=== PATIENT | male | born 1960 | race Caucasian/White ===

== ENCOUNTER 2024-07-28 10:53 | Emergency (ER) | payer OTHER, SELFPAY ==
[2024-07-28 11:04] VITALS: BP 122/72; PULSE 102; RESP 18; TEMP 37.1; O2SAT 96
--- NOTE | 2024-07-28 11:51 | ED.URI ---
HPI - URI/Sore Throat General Chief Complaint: Upper Respiratory Infection Stated Complaint: sore throat/ congestion Source: patient and RN notes reviewed Mode of arrival: ambulatory Limitations: no limitations History of Present Illness HPI Narrative: 63-year-old male presented for complaint of headache, body aches, sinus pressure/congestion, cough, fever/chills. Onset yesterday. Denies sob, wheezing, n/v/d. Endorses exposure to covid. MD elicited complaint: cough Related Data Allergies Allergy/AdvReac Type Severity Reaction Status Date / Time No Known Allergies Allergy Verified 07/28/24 11:35 Review of Systems Review of Systems: CONSTITUTIONAL: Endorses malaise, chills, sweats, fever EYES: Denies visual changes, redness, or discharge ENT: Reports rhinorrhea, congestion, sore throat CARDIOVASCULAR: Denies chest pain, palpitations, edema RESPIRATORY: Reports cough, post nasal drainage. Denies dyspnea GASTROINTESTINAL: Denies abdominal pain, nausea, vomiting, diarrhea SKIN: Denies rash or itching MUSCULOSKELETAL: Endorses myalgia PMFSH Past Medical History Medical History Cataract Diabetes with retinopathy Essential hypertension Morbid obesity due to excess calories Retinopathy Surgical History Surgical History H/O cataract removal with insertion of prosthetic lens Family History Family History Father Family history of diabetes mellitus in first degree relative Family history of coronary artery disease Family history of heart disease in male family member before age 55 Mother Family history of diabetes mellitus in first degree relative Hypertension Sibling Family history of diabetes mellitus in first degree relative Carcinoma of colon Family history of coronary artery disease Grandparent Diabetes mellitus Other Family history of cardiovascular disease Social History Social History Smoking status: Never smoker Second hand tobacco smoke exposure: No Smoking end date: 11/26/77 Alcohol intake: never Do You Feel Safe in your Home?: Yes Lack of Transportation: No Lack of Food: Never True Current Housing: I Have Housing Concerned About Future Housing: No Difficulty Paying Gas/Electric Bills: No Difficulty Paying for Meds: No Currently Unemployed: Decline to Answer Education: Decline to Answer Difficulty w/ Childcare or Family Care: Decline to Answer Exam Narrative: GENERAL: mildly Ill-appearing, nontoxic no acute distress. EYES: conjunctivae clear ENT: Mucous membranes moist. TMs pearly blake with dull light reflex bilaterally; no tragal tenderness. No tripod positioning, muffled voice, soft palate or pharyngeal wall bulging NECK: Supple. No lymphadenopathy CHEST: Clear to auscultation, breath sounds equal. No wheezing, rhonchi, rales, or stridor. No respiratory distress, speaks in full sentences. HEART: Regular rate and rhythm. No murmur heard. SKIN: Warm, dry, no rash. NEURO: Alert and oriented x3. PSYCH: Normal mood and affect Course Course Emergency Course: Patient is aware of diagnosis, understands and agrees to treatment plan. Anticipatory guidance given. Patient agrees to follow-up as directed and is aware of reasons to seek care at the emergency department. Portions of this record may have been created with voice recognition software Level of Care: Express Care Visit Vital Signs Vital signs: Vital Signs Temperature 98.7 F 07/28/24 11:04 Pulse Rate 102 H 07/28/24 11:04 Respiratory Rate 18 07/28/24 11:04 Blood Pressure 122/72 07/28/24 11:04 Pulse Oximetry 96 07/28/24 11:04 Oxygen Delivery Room Air 07/28/24 11:04 Temperature 98.7 F 07/28/24 11:04 Pulse Rate 102 H 07/28/24 11:04 Respiratory Rate
== END 2024-07-28 12:01 | disposition home or self-care (01) ==
PROVIDERS: Emergency Provider Nurse Practitioner Family; PCP Internal Medicine
DX: U07.1 COVID-19 (principal); I10 Essential (primary) hypertension; E11.319 Type 2 diabetes mellitus with unspecified diabetic retinopathy without macular edema; E66.01 Morbid (severe) obesity due to excess calories; Z68.41 Body mass index [BMI] 40.0-44.9, adult; Z96.1 Presence of intraocular lens; Z98.49 Cataract extraction status, unspecified eye
CPT/HCPCS: 87426; 99213; G0463